=== PATIENT | female | born 1980 | race African-American/Black ===

== ENCOUNTER 2017-11-06 22:15 | Emergency (ER) | payer MEDICAID ==
[~2017-11-06] VITALS: Ht 172.7 cm; Wt 59.4 kg
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
[2017-11-06 22:38] VITALS: BP 127/87
--- NOTE | 2017-11-07 08:54 | Diagnostic Imaging Report ---
Indication: Knee pain post trauma Technique: Right knee 4 views Comparison: None. Findings: The osseous structures are intact. There is no fracture or destruction. The visualized joints are normal. The soft tissues are unremarkable. Impression: Normal.
== END 2017-11-06 22:40 ==
LOC: EMR 22:39
DX: Z02.89 Encounter for other administrative examinations (principal); S80.211A Abrasion, right knee, initial encounter; S80.01XA Contusion of right knee, initial encounter; Y04.2XXA Assault by strike against or bumped into by another person, initial encounter; Y92.59 Other trade areas as the place of occurrence of the external cause
CPT/HCPCS: 99283